=== PATIENT | male | born 1960 | race Caucasian/White ===

== ENCOUNTER 2016-10-05 19:39 | Emergency (ER) | payer MEDICARE, OTHER ==
[~2016-10-05] VITALS: Ht 182.9 cm; Wt 158.8 kg
[~2016-10-05 19:39] MED LIST: AMIT75TA2 PO; APIX5TAB PO; ASPI81CH43 PO; ATOR20TA50 PO; DOXY-216 PO; FUR20T PO; HYDR-2601 PO; LEVO125T6 PO; MET50T PO; PANT40T PO; POTA10TA34 PO; SACC250C PO
[2016-10-05 21:00] LABS: Basophils # (auto) 0 uL; Basophils % (auto) 0.4 % (0.0-2.0); Eosinophils # (auto) 0.3 uL; Eosinophils % (auto) 3.7 % (0.0-7.0); Hematocrit 46.1 % (41.0-53.0); Hemoglobin 15.5 g/dL (13.5-17.5); Lymphocytes # (auto) 2.5 uL; Lymphocytes % (auto) 28.1 % (10.0-50.0); Mean Corpuscular Hemoglobin 27.2 pg (28.0-32.0); Mean Corpuscular Hgb Conc. 33.6 g/dL (32.0-36.0); Mean Corpuscular Volume 81.1 fL (80.0-100.0); Mean Platelet Volume 7.3 fL (7.4-10.4); Monocytes # (auto) 0.5 uL; Monocytes % (auto) 5.3 % (0.0-12.0); Neutrophils # (auto) 5.6 uL; Neutrophils % (auto) 62.5 % (37.0-80.0); Platelet Count (auto) 271 10^3/uL (140-450); Red Cell Distribution Width 16.5 % (11.6-16.0); White Blood Cell 8.9 10^3/uL (4.4-10.8)
[2016-10-05 21:18] LABS: Albumin 3.2 g/dL (3.4-5.0); Anion Gap 10 (5-15); Aspartate Aminotransferase 20 U/L (15-37); BUN/Creatinine Ratio 10.4; Blood Urea Nitrogen 14 mg/dL (7-18); Calcium 7.9 mg/dL (8.5-10.1); Carbon Dioxide 25 mmol/L (21-32); Chloride 108 mmol/L (98-107); GFR African American 70 mL/min; GFR Non-African American 58 mL/min; Glucose 98 mg/dL (74-106); Magnesium 2.1 mg/dL (1.6-2.6); Potassium 3.6 mmol/L (3.5-5.1); Sodium 143 mmol/L (136-145)
[2016-10-05 21:23] LABS: Alkaline Phosphatase 114 U/L (45-117); Bilirubin, Total 0.4 mg/dL (0.2-1.0); Total Protein 7.4 g/dL (6.4-8.2)
[2016-10-05 23:00] VITALS: BP 128/80
[2016-10-09] MEDS ORDERED: WARPRX PO (09:56)
[2016-10-09] MEDS ORDERED: ENO150SY SC (09:56)
== END 2016-10-05 23:26 | disposition home or self-care (01) ==
LOC: EDBD 19:39 → ER 19:45
DX: I12.9 Hypertensive chronic kidney disease with stage 1 through stage 4 chronic kidney disease, or unspecified chronic kidney disease (principal); E66.9 Obesity, unspecified; F41.9 Anxiety disorder, unspecified; H54.0 Blindness, both eyes; N18.9 Chronic kidney disease, unspecified; E11.9 Type 2 diabetes mellitus without complications; K21.9 Gastro-esophageal reflux disease without esophagitis; E78.5 Hyperlipidemia, unspecified; I25.2 Old myocardial infarction; E07.89 Other specified disorders of thyroid; Z88.1 Allergy status to other antibiotic agents; Z68.42 Body mass index [BMI] 45.0-49.9, adult; Z88.2 Allergy status to sulfonamides; Z88.8 Allergy status to other drugs, medicaments and biological substances
CPT/HCPCS: 36415; 80053; 83735; 84484; 85025; 93005

== ENCOUNTER 2016-11-01 12:57 | Emergency (ER) | payer MEDICARE, OTHER ==
[~2016-11-01] VITALS: Ht 185.4 cm; Wt 108.9 kg
[~2016-11-01 12:57] MED LIST changes: -APIX5TAB PO; -DOXY-216 PO; +ENO150SY SC; +WARPRX PO
[2016-11-01 13:08] VITALS: BP 150/98
[2016-11-01] MEDS ORDERED: cefTRIAXone SOD 1,000 MG VL IM ONE (14:30)
== END 2016-11-01 14:50 | disposition home or self-care (01) ==
LOC: EDBD 12:57 → ER 13:04
DX: J02.9 Acute pharyngitis, unspecified (principal); L03.317 Cellulitis of buttock; I12.9 Hypertensive chronic kidney disease with stage 1 through stage 4 chronic kidney disease, or unspecified chronic kidney disease; N18.9 Chronic kidney disease, unspecified; E78.5 Hyperlipidemia, unspecified; Z86.14 Personal history of Methicillin resistant Staphylococcus aureus infection; E07.9 Disorder of thyroid, unspecified; K21.9 Gastro-esophageal reflux disease without esophagitis; Z88.1 Allergy status to other antibiotic agents; Z88.8 Allergy status to other drugs, medicaments and biological substances; Z79.899 Other long term (current) drug therapy
CPT/HCPCS: 96372; 99283; J0696

== ENCOUNTER 2016-11-10 10:39 | Emergency (ER) | payer MEDICARE, OTHER ==
[~2016-11-10] VITALS: Ht 177.8 cm; Wt 149.7 kg
[2016-11-10] MEDS ORDERED: MORPHINE SULFATE 4 MG/ML SYRG IV ONE (11:30)
[2016-11-10] MEDS ORDERED: cloNIDine HCL 0.1 MG TAB PO ONE (11:30)
[2016-11-10 11:54] LABS: Basophils # (auto) 0 uL; Basophils % (auto) 0.4 % (0.0-2.0); Eosinophils # (auto) 0.2 uL; Eosinophils % (auto) 2.1 % (0.0-7.0); Hemoglobin 15.2 g/dL (13.5-17.5); Lymphocytes # (auto) 2.1 uL; Lymphocytes % (auto) 19.8 % (10.0-50.0); Mean Corpuscular Hemoglobin 27.1 pg (28.0-32.0); Mean Corpuscular Hgb Conc. 33.8 g/dL (32.0-36.0); Mean Corpuscular Volume 80.1 fL (80.0-100.0); Mean Platelet Volume 7.2 fL (7.4-10.4); Monocytes # (auto) 0.5 uL; Monocytes % (auto) 4.3 % (0.0-12.0); Neutrophils # (auto) 7.7 uL; Neutrophils % (auto) 73.4 % (37.0-80.0); Platelet Count (auto) 306 10^3/uL (140-450); Red Cell Distribution Width 15.8 % (11.6-16.0); White Blood Cell 10.5 10^3/uL (4.4-10.8)
[2016-11-10 12:18] LABS: Albumin 3.4 g/dL (3.4-5.0); BUN/Creatinine Ratio 12.1; Bilirubin, Total 0.7 mg/dL (0.2-1.0); Calcium 8.5 mg/dL (8.5-10.1); Magnesium 2.2 mg/dL (1.6-2.6); Potassium 3.5 mmol/L (3.5-5.1); Total Protein 7.7 g/dL (6.4-8.2)
[2016-11-10 12:52] LABS: Prothrombin Time 50.9 sec (9.37-12.3)
[2016-11-10 12:56] LABS: INR 4.71 (0.9-1.15); Partial Thromboplastin Time 112.3 sec (22.64-33.71)
[2016-11-10] MEDS ORDERED: phytonadione 10 MG in SODIUM CHL 0.9% 50 ML IV ONE (13:30)
[2016-11-10 13:49] LABS: Urine Bilirubin Negative (Negative); Urine Blood Negative /uL (Negative); Urine Color Yellow (Yellow); Urine Glucose Normal (Normal); Urine Ketone Negative (Negative); Urine Mucus FEW (None Seen); Urine Nitrite Negative (Negative); Urine RBC 1 /hpf (0 - 3); Urine Squamous Epithelial Cell FEW /hpf (<5); Urine Urobilinogen Normal (Negative); Urine pH 5.5 (5.0-8.0)
[2016-11-10 14:22] VITALS: BP 160/83
== END 2016-11-10 14:33 | disposition short-term general hospital (02) ==
LOC: ER 10:39 → EDBD 10:39 → ER 14:33
DX: R51 Headache (principal); I12.9 Hypertensive chronic kidney disease with stage 1 through stage 4 chronic kidney disease, or unspecified chronic kidney disease; N18.9 Chronic kidney disease, unspecified; K21.9 Gastro-esophageal reflux disease without esophagitis; M10.9 Gout, unspecified; E07.9 Disorder of thyroid, unspecified; E78.5 Hyperlipidemia, unspecified; Z86.718 Personal history of other venous thrombosis and embolism
CPT/HCPCS: 36415; 70450; 71010; 80053; 81001; 83735; 85025; 85610; 85730; 93005; 96365; 96375; 99291; J2270; J3430

== ENCOUNTER → 2017-08-20 | Outpatient (CLI) | payer MEDICARE, OTHER ==
[~2017-08-20] MED LIST changes: -ASPI81CH43 PO; -ATOR20TA50 PO; -ENO150SY SC; +FENT75DI2 TD; -LEVO125T6 PO; -PANT40T PO; -SACC250C PO
[2017-08-20 15:16] LABS: Basophils # (auto) 0.2 uL; Basophils % (auto) 1.4 % (0.0-2.0); Eosinophils # (auto) 0.1 uL; Eosinophils % (auto) 0.8 % (0.0-7.0); Hematocrit 49.3 % (41.0-53.0); Hemoglobin 16.7 g/dL (13.5-17.5); Mean Corpuscular Hemoglobin 28.2 pg (28.0-32.0); Mean Corpuscular Hgb Conc. 33.8 g/dL (32.0-36.0); Mean Corpuscular Volume 83.2 fL (80.0-100.0); Monocytes # (auto) 0.7 uL; Monocytes % (auto) 5.7 % (0.0-12.0); Neutrophils # (auto) 8.9 uL; Neutrophils % (auto) 75.1 % (37.0-80.0); Nucleated Red Blood Cells % 0.3 %; Platelet Count (auto) 272 10^3/uL (140-450); Red Blood Cells 5.93 10^6/uL (4.5-5.90); Red Cell Distribution Width 15.1 % (11.8-14.3); White Blood Cell 11.8 10^3/uL (4.4-10.8)
[2017-08-20 15:32] LABS: Urine Bacteria FEW /hpf (None Seen); Urine Blood TRACE /uL (Negative); Urine Hyaline Cast FEW /lpf (0 - 2); Urine Mucus FEW (None Seen); Urine Specific Gravity 1.012 (1.001-1.035); Urine WBC 27 /hpf (0 - 3)
[2017-08-20 15:54] LABS: BUN/Creatinine Ratio 12.5; Calcium 9.2 mg/dL (8.5-10.1); Potassium 3.3 mmol/L (3.5-5.1); Total Protein 8.5 g/dL (6.4-8.2)
== END | disposition home or self-care (01) ==
LOC: LAB 14:55
PROVIDERS: ATTEND Family Medicine
DX: E78.5 Hyperlipidemia, unspecified (principal); R79.89 Other specified abnormal findings of blood chemistry
CPT/HCPCS: 36415; 80053; 80061; 81001; 83036; 84443; 85025

== ENCOUNTER 2017-11-04 11:11 | Emergency (ER) | payer MEDICARE, OTHER ==
[~2017-11-04] VITALS: Ht 182.9 cm; Wt 136.1 kg
[2017-11-04 16:21] VITALS: BP 140/82
[2017-11-04] MEDS ORDERED: KETOROLAC TROMETH 60MG/2ML VIAL IM ONE (16:30)
== END 2017-11-04 16:58 | disposition home or self-care (01) ==
LOC: EDBD 11:11 → EDUNIT# 11:11 → ER 11:11
DX: M10.9 Gout, unspecified (principal); K21.9 Gastro-esophageal reflux disease without esophagitis; I10 Essential (primary) hypertension; E07.89 Other specified disorders of thyroid; Z88.1 Allergy status to other antibiotic agents; Z88.2 Allergy status to sulfonamides; Z88.8 Allergy status to other drugs, medicaments and biological substances
CPT/HCPCS: 96372; 99283; J1885

== ENCOUNTER → 2018-01-08 | Outpatient (CLI) | payer MEDICARE, OTHER | END | disposition home or self-care (01) | LOC: LAB 08:45 | PROVIDERS: ATTEND Family Medicine | DX: E03.9 Hypothyroidism, unspecified (principal); F41.9 Anxiety disorder, unspecified; M10.072 Idiopathic gout, left ankle and foot; K21.9 Gastro-esophageal reflux disease without esophagitis; I10 Essential (primary) hypertension; Z79.82 Long term (current) use of aspirin; Z79.01 Long term (current) use of anticoagulants | CPT/HCPCS: 36415; 84550 ==

== ENCOUNTER → 2018-08-30 | Outpatient (CLI) | payer MEDICARE, OTHER ==
[~2018-08-30] MED LIST changes: -POTA10TA34 PO; +POTA1TAB61 PO
[2018-08-30 12:06] LABS: INR 1.02 (0.9-1.15); Prothrombin Time 10.9 sec (9.27-12.13)
[2018-08-30 12:17] LABS: Albumin 3.5 g/dL (3.4-5.0); BUN/Creatinine Ratio 14.3; Calcium 8.2 mg/dL (8.5-10.1); Potassium 3.3 mmol/L (3.5-5.1)
[2018-08-30 12:19] LABS: Bilirubin, Total 0.5 mg/dL (0.2-1.0); Total Protein 7.2 g/dL (6.4-8.2)
[2018-08-30 12:45] LABS: Basophils # (auto) 0.1 uL; Basophils % (auto) 1.1 % (0.0-2.0); Eosinophils # (auto) 0.1 uL; Eosinophils % (auto) 2.2 % (0.0-7.0); Hematocrit 51.2 % (41.0-53.0); Hemoglobin 16.9 g/dL (13.5-17.5); Lymphocytes % (auto) 36.5 % (10.0-50.0); Mean Corpuscular Hemoglobin 28.4 pg (28.0-32.0); Mean Corpuscular Hgb Conc. 32.9 g/dL (32.0-36.0); Mean Corpuscular Volume 86.3 fL (80.0-100.0); Monocytes # (auto) 0.3 uL; Monocytes % (auto) 6.2 % (0.0-12.0); Nucleated Red Blood Cells % 0.1 %; Platelet Count (auto) 130 10^3/uL (140-450); Red Blood Cells 5.94 10^6/uL (4.5-5.90); Red Cell Distribution Width 15.7 % (11.8-14.3); White Blood Cell 5.5 10^3/uL (4.4-10.8)
[2018-09-02 10:00] LABS: Hepatitis B Surface Antibody Negative
[2018-09-02 11:20] LABS: Hepatitis A Total Antibody Negative; Hepatitis B Core Total AB Negative
[2018-09-02 11:22] LABS: Hepatitis C Antibody Negative (Negative)
[2018-09-02 11:23] LABS: Hepatitis B Surface Antigen Negative (Negative)
== END | disposition home or self-care (01) ==
LOC: LAB 11:12
PROVIDERS: ATTEND Internal Medicine
DX: I10 Essential (primary) hypertension (principal); E03.9 Hypothyroidism, unspecified; K21.9 Gastro-esophageal reflux disease without esophagitis; Z79.899 Other long term (current) drug therapy; Z79.01 Long term (current) use of anticoagulants; R94.5 Abnormal results of liver function studies
CPT/HCPCS: 36415; 80053; 80061; 82248; 83036; 84439; 84443; 85025; 85610; 86704; 86706; 86708; 86803; 87340

== ENCOUNTER → 2018-09-22 | Outpatient (CLI) | payer MEDICARE, OTHER | END | disposition home or self-care (01) | LOC: XYW 09:04 | PROVIDERS: ATTEND Internal Medicine | DX: Z01.818 Encounter for other preprocedural examination (principal); R94.5 Abnormal results of liver function studies | CPT/HCPCS: 93306 ==